=== PATIENT | male | born 1950 | race Caucasian/White ===

== ENCOUNTER 2019-01-06 09:15 | Emergency (ER) | payer MEDICARE, OTHER ==
[2019-01-06 09:30] VITALS: BP 132/83
[2019-01-06] MEDS ORDERED: Sodium Chloride 0.9% 10 ML Syringe FLUSH PRN (09:32)
[2019-01-06] MEDS ORDERED: Aspirin 81 MG Tab.Chew PO ONE (09:40)
--- NOTE | 2019-01-06 09:41 | EDM.PDOC ---
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 He states he has had a mild ache off and on for about a week but that has become more persistent and more bothersome since last evening and then especially this morning. The pain is left anterior lateral chest. He states with certain types of twisting motion and reaching the pain is worse. Mildly worse with deep breathing. He is not aware of any particular fall or injury but has done some intermittent heavy lifting. He does not have history of heart disease. He had an angiogram about 5 years ago that was good. However there is a strong family history for heart problems. He does not smoke. He has not been ill with cough fever or chills. Chest Pain Score (Numeric/FACES): 5 - Related Data Allergies Allergy/AdvReac Type Severity Reaction Status Date / Time codeine AdvReac Nausea Verified 01/06/19 09:30 Home Meds: Home Meds Aspirin [Ecotrin] 81 mg PO DAILY 01/06/19 [History] Doxazosin Mesylate [Cardura XL] 8 mg PO DAILY 01/06/19 [History] Lutein 10 mg PO DAILY 01/06/19 [History] Past Medical History Gastrointestinal History: Reports: Other (See Below) Other Gastrointestinal History: hernia Genitourinary History: Reports: Other (See Below) Other Genitourinary History: prostate Musculoskeletal History: Reports: Fracture, Other (See Below) Other Musculoskeletal History: shoulder fracture - Past Surgical History HEENT Surgical History: Reports: Other (See Below) Musculoskeletal Surgical History: Reports: Shoulder Surgery, Other (See Below) Social & Family History - Caffeine Use Caffeine Use: Reports: Soda - Living Situation & Occupation Living situation: Reports: Occupation: Employed ED ROS GENERAL - Review of Systems Review Of Systems: See Below Constitutional: Denies: Fever, Chills, Diaphoresis HEENT: Reports: No Symptoms Respiratory: Denies: Shortness of Breath, Pleuritic Chest Pain, Cough Cardiovascular: Reports: Chest Pain GI/Abdominal: Denies: Abdominal Pain, Nausea, Vomiting Musculoskeletal: Denies: Shoulder Pain, Arm Pain, Back Pain Skin: Reports: No Symptoms Neurological: Reports: No Symptoms ED EXAM, GENERAL - Physical Exam Exam: See Below General Appearance: Alert, No Apparent Distress Throat/Mouth: Normal Inspection, Normal Oropharynx Head: Atraumatic Neck: Supple Respiratory/Chest: No Respiratory Distress, Lungs Clear, Normal Breath Sounds, Other (Mild tenderness left anterior chest and left sternal border). No: Rhonchi, Wheezing Cardiovascular: Regular Rate, Rhythm GI/Abdominal: Soft, Non-Tender Back Exam: No: CVA Tenderness (L), CVA Tenderness (R) Extremities: Normal Inspection. No: Pedal Edema, Leg Pain, Increased Warmth, Redness Neurological: Alert, Oriented Skin Exam: Warm, Dry, Normal Color Course - Vital Signs Last Recorded V/S: Last Vital Signs Temp 98.2 F 01/06/19 09:26 Pulse 77 01/06/19 09:26 Resp 18 01/06/19 09:26 BP 132/83 01/06/19 09:26 Pulse Ox 100 01/06/19 09:26 - Orders/Labs/Meds Orders: Active Orders 24 hr Category Date Time Status EKG 12 Lead [EKG Documentation Completion] [RC] STAT Care 01/06/19 09:32 Active Peripheral IV Care [RC] . DIRECTED Care 01/06/19 09:32 Active Peripheral IV Insertion Adult [OM.PC] Stat Oth 01/06/19 09:32 Ordered Labs: Laboratory Tests 01/06/19 01/06/19 01/06/19 Range/Units 09:53 10:30 11:58 WBC 4.67 (4.23-9.07) K/mm3 RBC 4.48 L (4.63-6.08) M/mm3 Hgb 14.3 (13.7-17.5) gm/L Hct 40.5 (40.1-51.0) % MCV 90.4 (79.0-92.2) fl MCH 31.9 (25.7-32.2) pg MCHC 35.3 (32.2-35.5) g/dl RDW Std Deviation 40.5 (35.1-43.9) fL Plt Count 110 L (163-337) K/mm3 MPV 10.9 (9.4-12.3) fl Neut % (Auto) 51.2 (34.0-67.9) % Lymph % (Auto) 31.0 (21.8-53.1) % [place] % (Auto) 12.0 (5.3-12.2) % Eos % (Auto) 4.5 (0.8-7.0) Baso % (Auto) 1.1 (0.1-1.2) % Neut # (Auto) 2.39 (1.78-5.38) K/mm3 Lymph # (Auto) 1.45 (1.32-3.57) K/mm3 [place] # (Auto) 0.56 (0.30-0.82) K/mm3 Eos # (Auto) 0.21 (0.04-0.54) K/mm3 Baso # (Auto) 0.05 (0.01-0.08) K/mm3 Sodium 142 (136-145) mEq/L Potassium 4.0 (3.5-5.1) mEq/L Chloride 105 (98-107) mEq/L Carbon Dioxide 28 (21-32) mEq/L Anion Gap 13.0 (5-15) BUN 14 (7-18) mg/dL Creatinine 0.8 (0.7-1.3) mg/dL Est Cr Clr Drug Dosing 88.38 mL/min Estimated GFR (MDRD) > 60 (>60) mL/min BUN/Creatinine Ratio 17.5 (14-18) Glucose 105 (80-115) mg/dL Calcium 8.8 (8.5-10.1) mg/dL Total Bilirubin 1.0 (0.2-1.0) mg/dL AST 17 (15-37) U/L ALT 33 (16-63) U/L Alkaline Phosphatase 65 (46-116) U/L Troponin I < 0.017 < 0.017 (0.00-0.056) ng/mL Total Protein 6.5 (6.4-8.2) g/dl Albumin 4.0 (3.4-5.0) g/dl Globulin 2.5 gm/dL Albumin/Globulin Ratio 1.6 (1-2) Meds: Medications Discontinued Medications Generic Name Dose Route Start Last Admin Trade Name Freq PRN Reason Stop Dose Admin Hydrocodone Bitart/Acetaminophen 1 tab 01/06/19 11:57 01/06/19 12:07 [place] 325-5 Mg PO 01/06/19 11:58 1 tab ONETIME ONE Administration Aspirin 324 mg 01/06/19 09:40 01/06/19 09:50 Aspirin PO 01/06/19 09:41 324 mg ONETIME ONE Administration Sodium Chloride 10 ml 01/06/19 09:32 01/06/19 10:08 Saline Flush FLUSH 10 ml ASDIRECTED PRN Administration Keep Vein Open - Re-Assessments/Exams Free Text/Narrative Re-Assessment/Exam: 01/06/19 16:11 Initial troponin was negative, 2-1/2 to 3 hour troponin also came back normal, chest x-ray normal. His EKG looked good, he has definite chest wall soreness worsened by certain types of movement. Discharge instructions as documented. Departure - Departure Time of Disposition: 11:54 Disposition: Home, Self-Care 01 Condition: Fair Clinical Impression: Atypical chest pain, Chest wall pain Instructions: Nonspecific Chest Pain, Chest Wall Pain Referrals: PCP,None [Primary Care Provider] - Forms: ED Department Discharge Additional Instructions: Urine initial troponin looking for heart stress her heart attack was normal. Her lab work looked good. EKG and chest x-ray also looks fine. The second troponin has been drawn but results will not be available for about another hour. Return to the ED for results after your appointment and I will go over that with you at that time. Continue Aleve one or 2 tablets twice daily for pain and inflammation. Avoid heavy lifting. Alternate ice and heat as needed. Return to ED if symptoms worsening in any way. See one of our [facility] providers at our [facility] medical clinic later this week or next available appointment for complete physical. Call [phone] for appointment. - My Orders Last 24 Hours: My Active Orders 01/06/19 09:32 EKG 12 Lead [EKG Documentation Completion] [RC] STAT Peripheral IV Care [RC] . DIRECTED Peripheral IV Insertion Adult [OM.PC] Stat - Assessment/Plan Last 24 Hours: My Active Orders 01/06/19 09:32 EKG 12 Lead [EKG Documentation Completion] [RC] STAT Peripheral IV Care [RC] . DIRECTED Peripheral IV Insertion Adult [OM.PC] Stat
--- NOTE | 2019-01-06 11:37 | CR ---
Chest: Portable view of the chest was obtained. Comparison: No prior chest x-ray. Heart size and mediastinum are within normal limits. Lungs are clear with no acute parenchymal change. Minimal discoid atelectasis is incidentally noted within the left base. Prior bilateral shoulder surgery is noted. Impression: 1. Incidental findings. Nothing acute is seen on portable chest x-ray. Diagnostic code #2
[2019-01-06] MEDS ORDERED: Acetaminophen/HYDROcodone 325-5 MG Tab PO ONE (11:57)
== END 2019-01-06 12:10 | disposition home or self-care (01) ==
LOC: JD.ED 09:15
DX: R07.89 Other chest pain (principal); Z79.82 Long term (current) use of aspirin; Z79.899 Other long term (current) drug therapy
CPT/HCPCS: 36415; 71045; 80053; 84484; 85025; 93005; 99285; A9270; 93010; 99284

== ENCOUNTER 2021-02-26 14:56 | Emergency (ER) | payer MEDICARE, OTHER ==
[2021-02-26 15:10] VITALS: BP 117/83; PULSE 74
[2021-02-26] MEDS ORDERED: Diphtheria,Pertussis(Acell),Tetanus Vaccine 0.5 ML Syringe IM ONE (15:12)
--- NOTE | 2021-02-26 15:20 | EDM.PDOC ---
ED HPI GENERAL MEDICAL PROBLEM - General Chief Complaint: Laceration Stated Complaint: NEEDS TETNUS SHOT Time Seen by Provider: 02/26/21 15:01 Source of Information: Reports: Patient, RN Notes Reviewed History Limitations: Reports: No Limitations - History of Present Illness INITIAL COMMENTS - FREE TEXT/NARRATIVE: Patient is a 70-year-old male presenting to the emergency department with request of obtaining tetanus vaccination. He reports that earlier this afternoon, he kneeled in the dirt and there was a small reno nail. It states that it was lying sideways so it caused a superficial laceration to his knee but that it did not penetrate much. He cleaned the area with some soap and water and put on a Band-Aid, however he is unsure when his last tetanus vaccination wa s and would like to like it updated today. - Related Data Allergies Allergy/AdvReac Type Severity Reaction Status Date / Time codeine AdvReac Nausea Verified 02/26/21 15:03 Home Meds: Home Meds Aspirin [Ecotrin EC] 81 mg PO DAILY 01/06/19 [History] Doxazosin Mesylate [Cardura XL] 8 mg PO DAILY 01/06/19 [History] Lutein 10 mg PO DAILY 01/06/19 [History] Past Medical History Other HEENT History: wears glasses Cardiovascular History: Reports: High Cholesterol Gastrointestinal History: Reports: Other (See Below) Other Gastrointestinal History: hernia Genitourinary History: Reports: Other (See Below) Other Genitourinary History: prostate Musculoskeletal History: Reports: Fracture, Other (See Below) Other Musculoskeletal History: shoulder fracture - Past Surgical History HEENT Surgical History: Reports: Other (See Below) Other HEENT Surgeries/Procedures: abscess removed in throat; tonsil with gangrene Musculoskeletal Surgical History: Reports: Shoulder Surgery, Other (See Below) Other Musculoskeletal Surgeries/Procedures:: wrist surgery; shoulder surgery; knee surgery Social & Family History - Tobacco Use Tobacco Use Status *Q: Never Tobacco User Second Hand Smoke Exposure: No - Caffeine Use Caffeine Use: Reports: Soda - Recreational Drug Use Recreational Drug Use: No - Living Situation & Occupation Living situation: Reports: Occupation: Employed ED ROS GENERAL - Review of Systems Review Of Systems: Comprehensive ROS is negative, except as noted in HPI. ED EXAM, SKIN/RASH Exam: See Below Exam Limited By: No Limitations General Appearance: Alert, WD/WN, No Apparent Distress Respiratory/Chest: No Respiratory Distress, Lungs Clear, Normal Breath Sounds, No Accessory Muscle Use, Chest Non-Tender Cardiovascular: Normal Peripheral Pulses, Regular Rate, Rhythm, No Edema, No Gallop, No JVD, No Murmur, No Rub Skin: Other (1 cm superficial laceration to the right knee. No active bleeding.) Course - Vital Signs Last Recorded V/S: Last Vital Signs Temp 97.6 F 02/26/21 15:08 Pulse 74 02/26/21 15:08 Resp 16 02/26/21 15:08 BP 117/83 02/26/21 15:08 Pulse Ox 93 L 02/26/21 15:08 - Orders/Labs/Meds Meds: Medications Discontinued Medications Generic Name Dose Route Start Last Admin Trade Name Freaishwarya PRN Reason Stop Dose Admin Diphtheria/Tetanus/Acell Pertussis 0.5 ml 02/26/21 15:12 02/26/21 15:21 Diphtheria,Pertussis(Acell),Tetanus Vaccine 0.5 Ml Syringe IM 02/26/21 15:13 0.5 ml .ONCE ONE Administration - Re-Assessments/Exams Free Text/Narrative Re-Assessment/Exam: Patient is a 70-year-old male presenting to the emergency department with request obtaining tetanus vaccination. Earlier this afternoon, he kneeled on a reno nail which was lying sideways. It caused a laceration to his right knee. He reports that it did not puncture deeply. He is unsure when his last tetanus vaccination is and would like it updated today. Nursing staff did cleanse the area well with sterile saline and CHG soap. Antibiotic ointment and Band-Aid was applied. We will update his tetanus vaccination today. Discussed to watch for signs of infection. Discharge instructions as documented. Departure - Departure Time of Disposition: 15:18 Disposition: Home, Self-Care 01 Condition: Good Clinical Impression: Laceration - Discharge Information *PRESCRIPTION DRUG MONITORING PROGRAM REVIEWED*: No *COPY OF PRESCRIPTION DRUG MONITORING REPORT IN PATIENT MOODY: No Instructions: Laceration Care, Adult, [id number] Referrals: Yane Casas [employer] [Primary Care Provider] - Forms: ED Department Discharge Additional Instructions: You were seen in the emergency department today to obtain a tetanus vaccination after kneeling on a reno nail earlier today. The wound was cleansed and covered with antibiotic ointment and a Band-Aid. Your tetanus vaccination was updated today so it is valid for 10 years. Wash the wound twice daily with normal soap and water. Continue to apply antibiotic ointment intermittently for the next few days. Watch for signs of infection including increased redness, swelling, or purulent drainage. If this should occur, you should be evaluated in the clinic or return to the emergency department. Sepsis Event Note (ED) - Evaluation Sepsis Screening Result: No Definite Risk
== END 2021-02-26 15:25 | disposition home or self-care (01) ==
LOC: JD.ED 14:56
DX: S81.011A Laceration without foreign body, right knee, initial encounter (principal); Z23 Encounter for immunization; Z88.5 Allergy status to narcotic agent; Z79.82 Long term (current) use of aspirin; W45.0XXA Nail entering through skin, initial encounter
CPT/HCPCS: 90471; 90715; 99282

== ENCOUNTER 2024-06-26 07:14 | Day surgery (SDC) | payer MEDICARE ==
[2024-06-26] MEDS: Lactated Ringers 1,000 ML IV SCH (07:35)
[2024-06-26] MEDS ORDERED: Propofol 200 MG/20 ML SDV ONE (08:07)
[2024-06-26] MEDS ORDERED: Lidocaine 1% 5 ML VIAL ONE (08:08)
[2024-06-26 09:28] VITALS: BP 125/66; PULSE 61
== END 2024-06-26 09:35 | disposition home or self-care (01) ==
LOC: JD.SDS 07:14
PROVIDERS: ATTEND Surgery
DX: K21.00 Gastro-esophageal reflux disease with esophagitis, without bleeding (principal); K31.89 Other diseases of stomach and duodenum; K44.9 Diaphragmatic hernia without obstruction or gangrene; I48.91 Unspecified atrial fibrillation; E78.00 Pure hypercholesterolemia, unspecified; Z88.5 Allergy status to narcotic agent; Z79.01 Long term (current) use of anticoagulants; Z79.899 Other long term (current) drug therapy; Z79.82 Long term (current) use of aspirin
CPT/HCPCS: 43239; J2704; J7120; 00731; 88305; 99100; J3490